=== PATIENT | male | born 1950 ===

== ENCOUNTER 2023-07-18 12:13 | Emergency (ER) | payer MEDICARE | END 2023-07-18 13:17 | disposition home or self-care (01) | LOC: MADERS 12:13 | DX: S93.401A Sprain of unspecified ligament of right ankle, initial encounter (principal); I10 Essential (primary) hypertension; Z87.891 Personal history of nicotine dependence; Z79.82 Long term (current) use of aspirin; X50.0XXA Overexertion from strenuous movement or load, initial encounter ==